=== PATIENT | female | born 1980 | race Caucasian/White ===

== ENCOUNTER 2018-09-22 17:57 | Emergency (ER) | payer OTHER ==
--- NOTE | 2018-09-22 19:35 | EDM.PDOC ---
<Juli Aviles - Last Filed: 09/22/18 19:30> ED HPI GENERAL MEDICAL PROBLEM - General Chief Complaint: Respiratory Problem Stated Complaint: POSITIVE FOR TB Time Seen by Provider: 09/22/18 18:37 Source of Information: Reports: Patient History Limitations: Reports: No Limitations - History of Present Illness INITIAL COMMENTS - FREE TEXT/NARRATIVE: 37 female presents to ER with positive TB skin test. She states she had a test 2 weeks ago that was negative and today they repeated the test and her arm turned red. She denies cough, chills, fever. She reports having night sweats, but this is nothing new for her. Onset: Today Onset Date: 09/22/18 Onset Time: 15:00 Location: Reports: Upper Extremity, Left Severity: Mild Improves with: Reports: None Worsens with: Reports: None Associated Symptoms: Reports: No Other Symptoms. Denies: Cough, Shortness of Breath - Related Data Allergies Allergy/AdvReac Type Severity Reaction Status Date / Time amoxicillin Allergy Hives Verified 09/22/18 18:14 Penicillins Allergy Hives Verified 09/22/18 18:14 Home Meds: Home Meds Insulin Aspart [NovoLOG] 4 - 8 unit SQ QID 09/22/18 [History] Insulin Detemir [Levemir Flextouch] 25 unit SQ BID 09/22/18 [History] Mirtazapine 30 mg PO BEDTIME 09/22/18 [History] Naltrexone 50 mg PO DAILY 09/22/18 [History] OLANZapine [Olanzapine] 5 mg PO BEDTIME 09/22/18 [History] PARoxetine [Paxil] 20 mg PO BEDTIME 09/22/18 [History] Prazosin HCl [Prazosin] 4 mg PO BEDTIME 09/22/18 [History] traZODone HCl [Trazodone HCl] 150 mg PO BEDTIME 09/22/18 [History] Past Medical History Oncologic (Cancer) History: Reports: Bone - Past Surgical History HEENT Surgical History: Reports: Other (See Below) Other HEENT Surgeries/Procedures: jaw surgery Female Surgical History: Reports: Section Social & Family History - Tobacco Use Smoking Status *Q: Never Smoker - Caffeine Use Caffeine Use: Reports: None - Recreational Drug Use Recreational Drug Use: No ED ROS GENERAL - Review of Systems Review Of Systems: See Below Constitutional: Reports: Night Sweats. Denies: Fever, Chills, Weight Loss HEENT: Reports: No Symptoms Respiratory: Denies: Shortness of Breath, Cough Cardiovascular: Denies: Chest Pain Endocrine: Reports: No Symptoms GI/Abdominal: Reports: No Symptoms : Reports: No Symptoms Musculoskeletal: Reports: No Symptoms Skin: Reports: No Symptoms Neurological: Reports: No Symptoms Psychiatric: Reports: No Symptoms Hematologic/Lymphatic: Reports: No Symptoms Immunologic: Reports: No Symptoms ED EXAM, GENERAL - Physical Exam Exam: See Below Exam Limited By: No Limitations General Appearance: Alert, WD/WN, No Apparent Distress Neck: Normal Inspection, Supple, Non-Tender, Full Range of Motion Respiratory/Chest: No Respiratory Distress, Lungs Clear, No Accessory Muscle Use , Chest Non-Tender Cardiovascular: Normal Peripheral Pulses, Regular Rate, Rhythm, No Edema, No Gallop, No JVD, No Murmur, No Rub Neurological: Alert, Oriented, CN II-XII Intact, Normal Cognition, Normal Gait, Normal Reflexes Psychiatric: Normal Affect, Normal Mood Skin Exam: Warm, Dry, Intact, Normal Color, No Rash Lymphatic: No Adenopathy Course - Vital Signs Last Recorded V/S: Last Vital Signs Temp 36.6 C 09/22/18 18:11 Pulse 79 09/22/18 18:11 Resp 16 09/22/18 18:11 BP 114/64 09/22/18 18:11 Pulse Ox 95 09/22/18 18:11 - Orders/Labs/Meds Orders: Active Orders 24 hr Category Date Time Status Chest 2V [CR] Stat Exams 09/22/18 18:37 Taken - Re-Assessments/Exams Free Text/Narrative Re-Assessment/Exam: 09/22/18 19:35 37 y/o female presents to with cc + TB skin test today. Her chest x-ray was unremarkable. I will discharge with instructions to follow up with her PCP. Instructed to return to the ER for any new or acute worsening symptoms. She verbalized understanding and is comfortable with plan for discharge. She is stable at time of discharge. Departure - Departure Time of Disposition: 19:37 Disposition: Home, Self-Care 01 Clinical Impression: Positive PPD - Discharge Information Referrals: Maya Lyman PA-C [Primary Care Provider] - Forms: ED Department Discharge Additional Instructions: You were diagnosis with false positive PPD. Follow up with your PCP as needed. Return to ER for any new or acute worsening symptoms. <Abraham Landon - Last Filed: 09/22/18 21:39> Course - Radiology Interpretation Free Text/Narrative:: 37-year-old female [facility] [place] brought to the ED because of development of diffuse erythema of her forearm post PPD subcutaneous injection. The reaction took only a few hours to occur. It is thus a false positive test. It represents a significant antigenic response due to BPD given 2 weeks ago and likely a PPD shot given earlier last year. She therefore has sensitized to the PPD antigens and will react positively for the next couple of years. Explained to the guard and to the patient. Departure - Discharge Information *PRESCRIPTION DRUG MONITORING PROGRAM REVIEWED*: Not Applicable *COPY OF PRESCRIPTION DRUG MONITORING REPORT IN PATIENT ROMARIO: Not Applicable
--- NOTE | 2018-09-23 06:47 | CR ---
Chest: Two views of the chest were obtained. Comparison: No prior chest x-ray is available. Heart size and mediastinum are normal. Lungs are clear. Bony structures are unremarkable. Impression: 1. Nothing acute is seen on two-view chest x-ray. Diagnostic code #1
== END 2018-09-22 19:50 | disposition home or self-care (01) ==
LOC: JD.ED 17:57
DX: R76.11 Nonspecific reaction to tuberculin skin test without active tuberculosis (principal); Z79.899 Other long term (current) drug therapy; Z88.1 Allergy status to other antibiotic agents; Z88.0 Allergy status to penicillin
CPT/HCPCS: 71046; 71046-26; 99282; 99282-25